=== PATIENT | female | born 2000 | race Caucasian/White ===

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

== ENCOUNTER → 2021-01-01 13:55 | Outpatient (BNVA) | payer OTHER, SELFPAY | PROVIDERS: Visit Provider Nurse Practitioner ==

== ENCOUNTER 2021-02-04 12:00 | Outpatient (REF) | payer OTHER, SELFPAY ==
[2021-02-04 13:13] LABS: Cholesterol 182 mg/dL; HDL Cholesterol 52 mg/dL; LDL Cholesterol Calculated 108 mg/dl; Triglycerides 112 mg/dL
== END 2021-02-04 12:01 | disposition home or self-care (01) ==
LOC: HO.LAB 12:00
PROVIDERS: PCP Internal Medicine; Visit Provider Internal Medicine
DX: Z00.00 Encounter for general adult medical examination without abnormal findings (principal); K58.9 Irritable bowel syndrome, unspecified
CPT/HCPCS: 36415; 80061

== ENCOUNTER → 2021-05-24 13:40 | Outpatient (BNVA) | payer OTHER, SELFPAY | PROVIDERS: PCP Internal Medicine; Referring Provider Internal Medicine; Visit Provider Nurse Practitioner | DX: K58.2 Mixed irritable bowel syndrome (principal); Q61.3 Polycystic kidney, unspecified; K21.9 Gastro-esophageal reflux disease without esophagitis; R10.30 Lower abdominal pain, unspecified | CPT/HCPCS: 99212 ==

== ENCOUNTER 2023-02-08 14:31 | Outpatient (REF) | payer OTHER, SELFPAY ==
[2023-02-08 16:07] LABS: MANUAL DIFF FLAG NO
[2023-02-08 16:12] LABS: Basophils Percent Auto 0.7 % (0-2); Eosinophils Absolute Auto 0.2 X10*3/uL (0.0-0.4); Eosinophils Percent Auto 3.9 % (0-4); Hematocrit 43.4 % (37.0-47.0); Hemoglobin 14.5 g/dl (12.0-16.0); Imm Gran Abs Auto 0.01 X10*3/uL (0.00-0.03); Imm Gran Pct Auto 0.2 % (0.0-0.4); Lymphocytes Absolute Auto 1.8 X10*3/uL (1.2-4.9); Lymphocytes Percent Auto 30.3 % (20-40); Mean Corpuscular HGB Conc 33.4 g/dl (31.0-35.0); Mean Corpuscular Hemoglobin 29.1 pg (27.0-33.0); Monocytes Absolute Auto 0.5 X10*3/uL (0.1-1.2); Monocytes Percent Auto 7.6 % (2-11); Neutrophils Absolute Auto 3.4 x10*3/uL (2.0-8.3); Neutrophils Percent Auto 57.3 % (45-73); Platelet Count 338 X10*3/uL (160-400); Red Blood Count 4.99 X10*6/uL (4.20-5.50); Red Cell Distribution Width 12.3 % (11.0-16.0); White Blood Count 5.9 X10*3/uL (4.8-10.8)
[2023-02-08 16:13] LABS: Appearance Urine Turbid; Color Urine Dark Yellow; Glucose Urine UA Negative (Negative); Leukocyte Esterase Urine Negative (Negative); Nitrite Urine Negative (Negative); PH 5.5 (5.0-9.0); Specific Gravity - Urine >= 1.030 (1.005-1.025); UMIC TRIGGER UA YES; Urine Blood Large (3+) (Negative); Urine Ketones Trace mg/dL (Negative); Urine Protein 30 (1+) mg/dL (Neg-Trace)
[2023-02-08 16:24] LABS: Bacteria Urine 1+ (None Seen); Hyaline Casts Urine 0-2 /LPF (0-2); RBC Urine 0-2 /HPF (0-2); WBC Urine 0-5 /HPF (0-5)
[2023-02-08 16:49] LABS: Alanine Aminotransferase 11 U/L (0-31); Albumin Level 4.2 g/dL (3.5-5.0); Alkaline Phosphatase 103 U/L (39-117); Anion Gap 14 (12-20); Aspartate Amino Transferase 15 U/L (5-31); Bilirubin Total 0.3 mg/dL (0.0-1.0); Blood Urea Nitrogen 7 mg/dL (9-16); Calcium 9.3 mg/dL (8.4-10.2); Carbon Dioxide 25 mmol/L (22-29); Chloride 106 mmol/L (96-108); Cholesterol 158 mg/dL; Estimated Glomerular Filt Rate > 60; Glucose Fasting 94 mg/dL (60-99); HDL Cholesterol 44 mg/dL; LDL Cholesterol Calculated 100 mg/dl; Potassium 4.3 mmol/L (3.3-5.1); Sodium 141 mmol/L (135-145); Total Protein 7.3 g/dL (6.5-8.0); Triglycerides 71 mg/dL
[2023-02-09 21:23] LABS: Rubella IgG Antibody 2.72 Index
[2023-02-10 08:22] LABS: HBS Num1 0.31 mIU/mL (0-7.99); ~Hepatitis B Surface Antibody NONREACTIVE (Nonreactive)
[2023-02-10 17:09] LABS: TS Negative Control Passed; TS Panel A 0; TS Panel B 0; TS Positive Control Passed; TSpotTB Negative (Negative)
== END 2023-02-08 14:32 | disposition home or self-care (01) ==
LOC: HO.HMGCLDS 14:31
PROVIDERS: PCP Internal Medicine; Visit Provider Internal Medicine
DX: Z00.00 Encounter for general adult medical examination without abnormal findings (principal); Z11.1 Encounter for screening for respiratory tuberculosis
CPT/HCPCS: 36415; 80053; 80061; 81001; 85025; 86481; 86706; 86735; 86762; 86765; 86787

== ENCOUNTER 2023-04-23 11:51 | Emergency (ER) | payer OTHER, SELFPAY ==
--- NOTE | ~2023-04-23 | XR_ITS ---
EXAMINATION: XR CHEST CLINICAL INFORMATION: Cough for one month COMPARISON: None available. TECHNIQUE: Frontal view of the chest was obtained. FINDINGS: No significant abnormality is noted involving the heart, lungs, mediastinum, bony thorax or soft tissues. XR/XR chest 1V IMPRESSION: Unremarkable chest examination.
[2023-04-23 12:01] VITALS: BP 126/81; PULSE 89; RESP 18; TEMP 36.8; O2SAT 99; BMI 23.2
[2023-04-23 12:55] LABS: Influenza A PCR NEGATIVE (Negative); Influenza B PCR NEGATIVE (Negative); Resp Syncy Virus RNA Qual PCR NEGATIVE (Negative); SARS COV2 PCR INHOUSE NEGATIVE (Negative)
[2023-04-23 14:20] LABS: Appearance Urine Clear; Color Urine Dark Yellow; Glucose Urine UA Negative (Negative); Leukocyte Esterase Urine Moderate (2+) (Negative); Nitrite Urine Positive (Negative); PH 7.5 (5.0-9.0); Specific Gravity - Urine 1.015 (1.005-1.025); UMIC TRIGGER UACC YES; Urine Blood Negative (Negative); Urine Ketones Negative (Negative); Urine Protein Negative (Neg-Trace)
[2023-04-23 14:21] LABS: UPreg QC Valid YES; Urine Pregnancy NEGATIVE (NEGATIVE)
[2023-04-23 14:25] LABS: Bacteria Urine 4+ (None Seen); Hyaline Casts Urine 0-2 /LPF (0-2); RBC Urine 0-2 /HPF (0-2); UACC Culture Trigger YES; WBC Urine 21-50 /HPF (0-5)
--- NOTE | 2023-04-23 15:24 | ED.GENADULT ---
HPI - General Adult General Chief complaint: Upper Respiratory Symptoms Stated complaint: pneumonia? Time Seen by Provider: 04/23/23 12:57 Source: patient Mode of arrival: ambulatory Limitations: no limitations History of Present Illness HPI narrative: 23 yold female presents to the ED for chronic cough for the past month with yellow phlegm. Patient states she was treated as bronchitis earlier in the month but still had the cough and would like a chest x-ray. Patient denies any shortness of breath, leg swelling, calf pain, coughing up blood, pleurisy, recent long travel, recent surgery, or estrogen hormonal control pills. Patient's secondary complaint is dysuria. Patient states no abdominal pain, nausea, vomiting, flank pain, fever, chills, or hematuria. Related Data Home Medications Medication Instructions Recorded Confirmed hydroxyzine HCl 10 mg tablet 10 mg PO BID PRN anxiety 05/24/21 02/08/23 oxcarbazepine 150 mg tablet 300 mg PO 05/24/21 02/08/23 Previous Rx's Medication Instructions Recorded barium sulfate 2 % (w/v) oral 450 ml PO DIRECTED 1 day #900 mL 10/29/20 suspension (Readi-Cat 2) omeprazole 20 mg capsule,delayed 20 mg PO DAILY 30 days #30 caps 05/24/21 release benzonatate 200 mg capsule 200 mg PO TID PRN cough 5 days #15 04/23/23 caps cephalexin 500 mg capsule 500 mg PO QID 7 days #28 caps 04/23/23 Allergies Allergy/AdvReac Type Severity Reaction Status Date / Time No Known Allergies Allergy Verified 02/08/23 13:28 [No Known Allergies*] Review of Systems Review of Systems: Cough with yellow phelbhm, and dysuria Yes all other systems are reviewed and are negative [facility] Past Medical History Medical History Annual physical exam Bipolar 1 disorder IBS (irritable bowel syndrome) Menorrhagia Family History Family History Father No problems noted. Mother Hx of colonoscopy Hx of esophagogastroduodenoscopy Sister No problems noted. Brother No problems noted. Brother No problems noted. Social History Social History Household Members: Family Household Members Other:: Dad Housing: Condominium Alcohol intake: never Patient Tobacco Use Status: Never used Tobacco e-Cigarette/Vaping Use: Never Used Advance Directives: No Advance Directives Information Provided: Yes Current occupational status: unemployed Cognitive needs: No Hearing needs: No Vision needs: Yes Physical Exam ED Vital Signs: Vital Signs - 24 hr 04/23/23 12:01 04/23/23 15:50 Temperature 98.2 F 98.5 F Pulse Rate 89 75 Respiratory Rate 18 15 Blood Pressure 126/81 117/77 Pulse Oximetry 99 99 Oxygen Delivery Method Room Air Room Air BMI result Body Mass Index 23.2 Const General: cooperative, healthy appearing, comfortable, no acute distress, well developed, alert, awake and Physically active Orientation/consciousness: oriented to person, oriented to place, oriented to time and patient oriented x3 HENMT Head: Yes normal to inspection, Yes No palpable skull fracture present, Yes normocephalic, Yes atraumatic and No abrasion Ears: hearing grossly normal bilaterally, external ears normal, TM's normal bilaterally, TM normal on the right, TM normal on the left, EAC's normal, mastoids normal and no periauricular adenopathy Eyes General: appearance normal, both eyes and all related structures Neck Neck: Yes normal visual inspection, Yes full ROM, Yes no lymphadenopathy, Yes no meningeal signs, Yes trachea midline, Yes supple, No anterior neck swelling and No tender Chest Chest palpation & inspection: normal inspection of the chest and normal palpation of entire chest wall Resp Effort & Inspection: normal respiratory effort and able to speak in complete sentences Auscultation: clear to auscultation bilaterally Cardio Jugular venous distension: no JVD Heart sounds: S1 normal heart sound present and S2 normal heart sound present GI Inspection: Yes normal to inspection and No abdominal wall ecchymosis Palpation (GI): Soft to palpation, not firm, nontender, no guarding and not rigid General: No CVA tenderness and Yes no CVA tenderness Back/Spine/Pelvis Back: no CVA tenderness, No CVA tenderness and No back tenderness Skin General skin exam: no rashes or lesions noted and elasticity normal Neuro General: oriented to person, oriented to place, oriented to time, patient oriented x3, gait normal, tone normal, moves all extremities, Normal light touch and pain sensation, no meningeal signs, no focal motor deficits, CN's II-XI intact bilaterally and normal sensation to monofilament Extrem General: Yes normal to inspection and Yes full ROM Psych Appearance: grossly normal, well kempt and not disheveled Medical Decision Making Medical Decision Making [facility] Narrative: 23-year-old female presents to ED for chronic cough for 1 month with yellow phlegm without any chest pain or shortness of breath. Secondary complaint was dysuria without any abdominal pain, hematuria, nausea, vomiting, flank pain, fever or chills. SARs COVID RSV came back negative. Chest x-ray normal. Bilateral lower extremity negative for swelling, pitting edema, calf tenderness. Suspected myocardial infarction, CHF, pulmonary embolus. UA shows UTI. Differential Diagnosis Differential Diagnoses: The differential diagnosis associated with the presentation includes (Pyelonephritis, kidney stone, heart failure, myocardial infarction, pneumonia, pulmonary embolus) Lab Data [facility] Lab Attestation statement: I reviewed the patient's lab results. Labs: Lab Results 04/23/23 04/23/23 04/23/23 Range/Units 12:06 14:12 14:12 Urine Color Dark Yellow Urine Appearance Clear Urine pH 7.5 (5.0-9.0) Ur Specific [place] 1.015 (1.005-1.025) Urine Protein Negative (Neg-Trace) mg/dL Urine Glucose (UA) Negative (Negative) mg/dL Urine Ketones Negative (Negative) mg/dL Urine Blood Negative (Negative) Urine Nitrite Positive H (Negative) Ur Leukocyte Esterase Moderate (2+) H (Negative) Urine RBC 0-2 (0-2) /HPF Urine WBC 21-50 H (0-5) /HPF Ur Squamous Epith Cells 6-10 (0-2) /HPF Urine Bacteria 4+ (None Seen) Hyaline Casts 0-2 (0-2) /LPF Urine Test NEGATIVE (NEGATIVE) Influenza Type A (PCR) NEGATIVE (Negative) Influenza Type B (PCR) NEGATIVE (Negative) RSV RNA Qual (PCR) NEGATIVE (Negative) SARS-CoV-2 RNA (RT-PCR) NEGATIVE (Negative) Independent Interpretation I performed an independent interpretation of an: Plain X-Ray Prescription Management I considered prescription management with: Antibiotic Discharge Plan Discharge Clinical Impression: Chronic cough, UTI (urinary tract infection) Patient Disposition: Home, Self-Care Instructions: Urinary Tract Infection in Women (ED), Chronic Cough (ED) Additional Instructions: Return to the ED immediately for any abdominal pain, nausea, vomiting, blood in urine, flank pain, fever, chills, chest pain, shortness of breath, leg swelling, calf pain, coughing up blood, chest in inspiration, or any other concerning symptoms. Please follow-up with the primary care provider. Prescriptions: New cephalexin 500 mg capsule 500 mg PO QID 7 Days Qty: 28 0RF benzonatate 200 mg capsule 200 mg PO TID PRN (Reason: cough) 5 Days Qty: 15 0RF No Action Readi-Cat 2 2 % (w/v) suspension 450 ml PO DIRECTED 1 Days Qty: 900 0RF Rx Instructions: Take as directed orally prior to CT Scan oxcarbazepine 150 mg tablet 300 mg PO hydroxyzine HCl 10 mg tablet 10 mg PO BID PRN (Reason: anxiety) omeprazole 20 mg capsule,delayed release(DR/EC) 20 mg PO DAILY 30 Days Qty: 30 6RF Interventions: ED Discharge Assessment Last Done: 04/23/23 15:50 Discharge Date/Time: 04/23/23 15:51 Print Language: Estonian
[2023-04-23 15:50] VITALS: BP 117/77; PULSE 75; RESP 15; TEMP 36.9; O2SAT 99
== END 2023-04-23 15:51 | disposition home or self-care (01) ==
PROVIDERS: Physician Assistant; Emergency Provider Internal Medicine; PCP Internal Medicine
DX: N39.0 Urinary tract infection, site not specified (principal); R05.9 Cough, unspecified; Z20.822 Contact with and (suspected) exposure to COVID-19; Z20.828 Contact with and (suspected) exposure to other viral communicable diseases; Z79.899 Other long term (current) drug therapy
CPT/HCPCS: 0241U; 71045; 81001; 81025; 87086; 87088; 87186; 99283

== ENCOUNTER 2025-05-01 11:34 | Outpatient (AMB) | payer OTHER, SELFPAY ==
--- NOTE | 2025-05-01 11:53 | A.OFFPC_ITS ---
Vital Signs 05/01/25 11:54 Height 5 ft 4 in Weight 161 lb BMI 27.6 BP 110/70 Blood Pressure Location Lt brachial Position Sitting Respiration 20 Pulse 98 Pulse Source Pulse Oximeter Temp 98.7 F Temp Source Oral Pulse Oximetry (%) 98 Oxygen Delivery Method Room Air Intake Visit Reasons: GI issues Intake Note: Pt is here today for a sick visit. Pt c/o GI issues for a month now. Pt states that she has diarrhea and constipation. Allergies No Known Allergies [No Known Allergies*] Allergy (Verified 05/01/25 11:58) Medication List - Last Reconciled 05/01/25 by Radha Seaman MD buspirone 5 mg PO BID Tobacco use date assessed: 05/01/25 Dental Screening Dental Screen Date: 05/01/25 Did you have a dental visit in the last 12 months?: Yes Did you have a dental problem in the last 6 months where you did not have access to dental care?: No Was dental information given to patient?: Patient has dentist HPI GI issues HPI Details Patient presents complaining of recurrent abdominal discomfort bloating intermittent diarrhea constipation worsening since patient had twin boys a year ago and worsening anxiety for the last few months. Patient is established with a counselor and just started taking buspirone 5 mg twice a day. Patient was evaluated by GI in the past she was negative for celiac disease. Patient is established with clinical tech for polycystic kidney disease having annual visits. [facility] Medical History (Updated 05/01/25 @ 12:50 by Radha Seaman MD) Chronic anxiety Polycystic kidney disease Menorrhagia IBS (irritable bowel syndrome) Annual physical exam Bipolar 1 disorder Surgical History Bruno teeth extracted Family History (Updated 05/01/25 @ 12:02 by GINNA Pratt) Father No problems noted. Mother Hx of colonoscopy Hx of esophagogastroduodenoscopy Sister No problems noted. Brother No problems noted. Brother No problems noted. Maternal Grandmother Lung cancer Social History Household Members: Family Household Members Other:: Dad Housing: Condominium Alcohol intake: never Patient Tobacco Use Status: Never used Tobacco e-Cigarette/Vaping Use: Never Used service: No Current occupational status: unemployed Cognitive needs: No Hearing needs: No Vision needs: Yes Questionnaire PHQ-9 Over the last 2 weeks, how often have you been bothered by any of the following problems? 1. Little interest or pleasure in doing things: not at all 2. Feeling down, depressed, or hopeless: more than half the days 3. Trouble falling or staying asleep, or sleeping too much: not at all 4. Feeling tired or having little energy: nearly every day 5. Poor appetite or overeating: several days 6. Feeling bad about yourself - or that you are a failure or have let yourself or your family down: not at all 7. Trouble concentrating on things, such as reading the newspaper or watching television: not at all 8. Moving or speaking so slowly that other people could have noticed. Or the opposite - being so fidgety or restless that you have been moving around a lot more than usual: not at all 9. Thoughts that you would be better off or of hurting yourself in some way: not at all Total score: 6 Depression Screening Interpretation: Negative Depression Screening Done: Yes 53748 - PHQ-9 Billing: Yes Source: Developed by Drs. Gilson Yeboah, Selma Argueta, Amos Issa and colleagues, with an educational laurie from [employer]. Thrive Questionnaire Date Thrive assessed: 05/01/25 I am a: Patient What is your living situation today?: I have a steady place to live Within the past 12 months, did the food you bought not last and you didn't have the money to get more?: Never true Within the past 12 months, did you worry whether your food would run out before you got money to buy more?: Sometimes True Do you have trouble paying for medicines?: No Do you have trouble getting transportation to medical appointments?: Yes Do you have trouble paying your heating and electricity bill?: No Do you have trouble taking care of your child, family member or friend?: No Do you have trouble with day-to-day activities such as bathing, preparing meals, shopping, managing finances, etc.?: No Are you currently unemployed and looking for a job?: No Are you interested in more education?: I choose not to answer this question Please select the resources that you would like help with: None Currently or been in a relationship where the following occur: I choose not to answer THRIVE Score: 2 AUDIT C Alcohol Use Questionnaire (AUDIT-C) 1. How often do you have a drink containing alcohol?: Never 3. How often do you have six or more drinks on one occasion?: Never Total Score: 0 SILVINO-7 AMB Questionnaire SILVINO-7 Date SILVINO - 7 assessed: 05/01/25 Feeling nervous, anxious, or on edge: 3 = Nearly every day Not being able to stop or control worryin = More than half the days Worrying too much about different things: 2 = More than half the days Trouble relaxin = Several days Being so restless that it is hard to sit still: 1 = Several days Becoming easily annoyed or irritable: 1 = Several days Feeling afraid as if something awful might happen: 2 = More than half the days Total SILVINO-7 score (0-4 normal; 5-9 mild; 10-14 moderate; 15-21 severe): 12 Source: Developed by Drs. Gilson Yeboah, Selma Argueta, Amos Issa and colleagues, with an educational laurie from [employer]. SILVINO-7 Assessment Billing SILVINO-7 Assessment Tool: SILVINO-7 Assessment 52621 Review of Systems Const All systems reviewed & are unremarkable except as noted in HPI and below Eyes Reports no additional complaints Card Reports no additional complaints Resp Reports no additional complaints GI Reports no additional complaints Physical exam (Primary Care) Vital Signs: Last Vital Signs Temp 98.7 F 05/01/25 11:54 Pulse 98 05/01/25 11:54 Resp 20 05/01/25 11:54 BP 110/70 05/01/25 11:54 Pulse Ox 98 05/01/25 11:54 Oxygen Delivery Method Room Air 05/01/25 11:54 BMI result Body Mass Index 27.6 Tobacco/Smoking Status: Tobacco use Status Tobacco use date assessed 05/01/25 05/01/25 11:56 Patient Tobacco Use Status Never used Tobacco 05/01/25 11:56 e-Cigarette/Vaping Use Never Used 05/01/25 11:56 PHQ-9: PHQ-9 Score PHQ-9: Total score 6 06/05/25 12:03 Depression Screening Interpretation: Negative Thrive Assessment: Date of Thrive Assessment Date Thrive assessed 05/01/25 05/01/25 12:03 Currently or been in a relationship where the following occur: I choose not to answer Const General: no acute distress HENMT Head: Yes normal to inspection General nose exam: Normal external nose present Neck Neck: Yes supple Resp Effort & Inspection: normal respiratory effort Auscultation: clear to auscultation bilaterally Cardio Rhythm: regular rhythm Heart sounds: S1 normal heart sound present and S2 normal heart sound present GI Inspection: Yes normal to inspection Palpation (GI): Soft to palpation Percussion: Yes normal to percussion Auscultation: normal bowel sounds Coding Level of Care Code Est Pt Level 3 (11445) Diagnoses Polycystic kidney disease Q61.3 IBS (irritable bowel syndrome) K58.9 Chronic anxiety F41.9 Additional Codes SILVINO-7 Assessment Billing - SILVINO-7 Assessment Tool: SILVINO-7 Assessment 12838 ([id number]) PHQ-9 - 80384 - PHQ-9 Billing: Yes ([id number]) Assessment & Plan Assessment & Plan (1) Polycystic kidney disease: Comment: Evaluated by Nephrology Code(s): Q61.3 - Polycystic kidney, unspecified Category: Medical Plan: Follow-up with nephrology (2) IBS (irritable bowel syndrome): Comment: f/u [facility] GI February, never had a colonoscopy, negative stool studies and celiac disease workup Code(s): K58.9 - Irritable bowel syndrome, unspecified Category: Medical Plan: Return for fasting blood work dicyclomine will be tried (3) Chronic anxiety: Comment: Established with a counselor and prescriber Code(s): F41.9 - Anxiety disorder, unspecified Category: Medical Plan: Mindfulness meditation stress management discussed with the patient. Follow-up with a counselor and a prescriber Orders: Orders Complete Blood Count Auto Diff Today Q61.3 - Polycystic kidney, unspecified, Z00.00 - Encounter for general adult medical examination without abnormal findings IRON PROFILE Today Q61.3 - Polycystic kidney, unspecified, Z00.00 - Encounter for general adult medical examination without abnormal findings TSH reflex Free T4 Today Q61.3 - Polycystic kidney, unspecified, Z00.00 - Encounter for general adult medical examination without abnormal findings Vitamin D 25-OH Total Today Q61.3 - Polycystic kidney, unspecified, Z00.00 - Encounter for general adult medical examination without abnormal findings Lipid Panel Today Q61.3 - Polycystic kidney, unspecified, Z00.00 - Encounter for general adult medical examination without abnormal findings Comprehensive [place]. Panel Fast Today Q61.3 - Polycystic kidney, unspecified, Z00.00 - Encounter for general adult medical examination without abnormal findings UA w Microscopic Today Q61.3 - Polycystic kidney, unspecified, Z00.00 - Encounter for general adult medical examination without abnormal findings Medications: New dicyclomine 10 mg PO TID 90 caps 0RF
[2025-05-01 11:54] VITALS: BP 110/70; PULSE 98; RESP 20; TEMP 37.1; O2SAT 98; BMI 27.6
--- OUTSIDE RECORDS SUMMARY | 2025-05-01 13:48 | XMS_ITS | Encounter Summary ---
Author Organization [facility] Address [address] [place] [phone] Phone Care Team Providers Care Student Teaching Coordinator Name Role Phone Radha Seaman MD Primary Care Provider [phone] Encounter Details Date Type Department Care Team (Late st Contact Info) Description 06/09/2023 Orders Only [facility] [address] [place] [address] [place] [address] [place] [address] Urinary tract infection, not otherwise specified Social History Tobacco Use Types Packs/Day Years Used Date Smoking Tobacco: Never Smokeless Tobacco: Never Alcohol Use Standard Drinks/Week Comments Never 0 (1 standard drink = 0.6 oz pur e alcohol) AUDIT-C Answer Date Recorded Q1: How often do you have a drink containing alc ohol? Never 12/11/2020 Average Number of Drinks Not on file 021 Frequency of Binge Drinking Not on file 11/27 Comments Unknown Sex and Gender Information Value Date Recorded Sex Assigned at Not on file Legal Sex Female 3:47 PM EST Gender Identity Not on file Sexual Orientation Not on file documented as of this encounter Plan of Treatment Upcoming Encounters Date Type Department Care Team (Late st Contact Info) Description 12/17/2025 2:15 PM EST Office Visit [facility] [address] [place] [phone] Sharif Junior MD [address] [place] [address] [place] [phone] documented as of this encounter Visit Diagnoses Diagnosis Urinary tract infection, not otherwise specified documented in this encounter Care Teams Student Teaching Coordinator Relationship Specialty Start Date End Date Radha Seaman MD [address] [place] [address] PCP - General Internal Medicine 11/10/20 documented as of this encounter
== END 2025-05-01 12:57 | disposition home or self-care (01) ==
LOC: HO.HMCC 11:35
PROVIDERS: PCP Internal Medicine; Visit Provider Internal Medicine
DX: Q61.3 Polycystic kidney, unspecified (principal); K58.9 Irritable bowel syndrome, unspecified; F41.9 Anxiety disorder, unspecified

== ENCOUNTER → 2025-05-01 11:34 | Outpatient (BNVA) | payer OTHER, SELFPAY | PROVIDERS: PCP Internal Medicine; Visit Provider Internal Medicine | DX: K58.0 Irritable bowel syndrome with diarrhea (principal); K58.1 Irritable bowel syndrome with constipation; Q61.3 Polycystic kidney, unspecified; F41.9 Anxiety disorder, unspecified | CPT/HCPCS: 96127; 99212 ==

== ENCOUNTER 2025-06-14 09:18 | Outpatient (REF) | payer OTHER, SELFPAY ==
--- OUTSIDE RECORDS SUMMARY | 2025-06-14 09:21 | XMS_ITS | Encounter Summary ---
Author Organization [facility] Address [address] [place] [phone] Phone Care Team Providers Care Mine Administrator Supervisor Name Role Phone Radha Seaman MD Primary Care Provider [phone] Encounter Details Date Type Department Care Team (Late st Contact Info) Description 06/09/2023 Orders Only [facility] [address] [place] [address] [place] [address] [place] [address] Urinary tract infection, not otherwise [...] Visit [facility] [address] [place] [phone] Sharif Junior MD [address] [place] [address] [place] [address] documented as of this encounter Visit Diagnoses Diagnosis Urinary tract infection, not otherwise specified documented in this encounter Care Teams Mine Administrator Supervisor Relationship Specialty Start Date End Date Radha Seaman MD [address] [place] [address] PCP - General Internal Medicine 11/10/20 documented as of this encounter
--- OUTSIDE RECORDS SUMMARY | 2025-06-14 09:21 | XMS_ITS | Data Portability ---
Author Organization [facility], [address] Address [address] [place] [address] Care Team Providers Care Director Volunteer Services Name Role Phone RAMON VERA Primary Care Provider Assessment No assessment recorded. Plan of Treatment Reminders Order Date Submit Date Provider Last Modified By Organization Details Last Modified Time Details Appointments None recorded. Lab rapid SARS CoV 2 Ag, QL IA, respiratory specimen 2022 023 [facility], [address] [place] [address], [phone], 3 20:25:08 rapid flu (A+B) 2022 023 [facility], [address] [place] [address], [phone], 3 20:25:08 rapid strep group A, throat 2022 023 [facility], [address] [place] [address], [phone], 3 20:25:08 Referral None recorded. Procedures None recorded. Surgeries None recorded. Imaging None recorded. Medication Orders albuterol sulfate HFA 90 mcg/actuati on aerosol inhaler 2022 023 [id number], [address] [place], [address], 3 18:54:04 prednisone 20 mg tablet 2022 023 [id number] [address] [place], [address], 3 18:54:03 benzonatate 200 mg capsule 2022 023 [id number], [address] [place], [address], 3 18:54:01 Allergy Relief (fluticason e) 50 mcg/actuati on nasal spray,suspe nsion 2022 023 [id number], [address] [place], [address], 3 18:54:02 amoxicillin 875 mg-potassiu m clavulanate 125 mg tablet 2022 023 [facility] [address] [place], [address], 3 20:25:12 fexofenadin e-pseudoeph edrine ER 180 mg-240 mg tablet,ext. release 24 hr 2022 023 [id number] [address] [place], [address], 3 20:25:12 prednisone 20 mg tablet 2022 023 [id number] [address] [place], [address], 3 20:25:12 Patient TargetsNo targets recorded. Patient Instructions Encounter Date Encounter Id Patient Instructions Last Modified By Organization Details Last Modified Time 02/24/2023 [id number] An ear infection may start with a cold and affect the middle ear (otitis media). It can hurt a lot. Most ear infections clear up on their own in a couple of days and do not need antibiotics. Also, antibiotics do not work against viruses, which may be the cause of your infection. Regular doses of pain relievers are the best way to reduce your fever and help you feel better. How can you care for yourself at home? Take pain medicines exactly as directed. If the doctor gave you a prescription medicine for pain, take it as prescribed. If you are not taking a prescription pain medicine, take an nabt-yat-dqinwme medicine, such as acetaminophen (Tylenol), ibuprofen (Advil, Motrin), or naproxen (Aleve). Read and follow all instructions on the label. Do not take two or more pain medicines at the same time unless the doctor told you to. Many pain medicines have acetaminophen, which is Tylenol. Too much acetaminophen (Tylenol) can be harmful. Plan to take a full dose of pain reliever before bedtime. Getting enough sleep will help you get better. Try a warm, moist face cloth on the ear. It may help relieve pain. If your doctor prescribed antibiotics, take them as directed. Do not stop taking them just because you feel better. You need to take the full course of antibiotics. [email or web address] Not available 02/24/2023 20:24:12 If you test positive for COVID-19, stay home for at least 5 days and isolate from others in your home. You are likely most infectious during these first 5 days. Wear a high-quality mask if you must be around others at home and in public. Do not go places where you are unable to wear a mask. For travel guidance, see [facility] s Travel webpage. Do not travel. Stay home and separate from others as much as possible. Use a separate bathroom, if possible. Take steps to improve ventilation at home, if possible. Don t share personal household items, like cups, towels, and utensils. Monitor your symptoms. If you have an emergency warning sign (like trouble breathing), seek emergency medical care immediately. If you had symptoms and: Your symptoms are improving You may end isolation after day 5 if: You are fever-free for 24 hours (without the use of fever-reducing medication). Your symptoms are not improving Continue to isolate until: You are fever-free for 24 hours (without the use of fever-reducing medication). Your symptoms are improving. Regardless of when you end isolation Until at least day 11: Avoid being around people who are more likely to get very sick from COVID-19. Remember to wear a high-quality mask when indoors around others at home and in public. Do not go places where you are unable to wear a mask until you are able to discontinue masking (see below). For travel guidance, see [facility] Travel webpage. [email or web address] Not available 02/24/2023 20:14:56 03/25/2023 [id number] cough: care instructions [email or web address] Not available 03/25/2023 18:53:58 Patient instruct ed on worsening signs and symptoms that would require further evaluation by ED or PCP such as fever of 101.0 or greater, congestion accompanied with coughing, vomiting, diarrhea, abdominal pain, decreased oral intake, lethargy, or other new symptom(s) experienced not discussed during this visit. Use humidifier and ensure good hydration. If you experience new concerning symptoms, shortness of breath, respiratory distress, or chest pain go to the ER. Use the medications prescribed. May use Decongestants if tolerated and no history of elevated blood pressure or Diabetes. Use saline nasal saline and Flonase daily for1 week. You may use tylenol for pain/fever. Do not take prednisone with Ibuprofen. Get some extra rest. When should you call for help? Call anytime you think you may need emergency care. For example, call if: You have severe trouble breathing. Call your doctor now or seek immediate medical care if: You have new or worse trouble breathing. You cough up dark brown or bloody mucus (sputum). You have a new or higher fever. You have a new rash. Watch closely for changes in your health, and be sure to contact your doctor if: You cough more deeply or more often, especially if you notice more mucus or a change in the color of your mucus. You are not getting better as expected. [email or web address] Not available 03/25/2023 18:53:55 Reason for Referral None Reported. Results Created Date Observation Date Name Description Value Unit Range Abnormal Flag Note LastModifiedBy Organization Detail LastModifiedTime 02/25/20 23 02/24/2023 rapid SARS CoV 2 Ag, QL IA, respi rator y speci men Unknown Analyte Normal =Negat flower Not Available [address] [place] [address], [place], [address], 02/24/2023 19:57:57 02/25/20 23 02/24/2023 rapid SARS CoV 2 Ag, QL IA, respi rator y speci men Unknown Analyte negati ve Not Available [address] [place] [address], [place], [address], 02/24/2023 19:57:57 02/25/20 23 02/24/2023 rapid flu (A+B) Unknown Analyte Normal = Negati ve Not Available [address] [place] [address], [place], [place], [address], 02/24/2023 19:58:05 02/25/20 23 02/24/2023 rapid flu (A+B) Unknown Analyte Normal = Negati ve Not Available [address] [place] [address], [place], [address], 02/24/2023 19:58:05 02/25/20 23 02/24/2023 rapid flu (A+B) Unknown Analyte negati ve Not Available [address] [place] [address], [place], [address], 02/24/2023 19:58:05 02/25/20 23 02/24/2023 rapid flu (A+B) Unknown Analyte negati ve Not Available [address] [place] [address], [place], [address], 02/24/2023 19:58:05 02/25/20 23 02/24/2023 rapid strep group A, throa t Unknown Analyte Normal = Negati ve Not Available [address] [place] [address], [place], [address], 02/24/2023 19:58:13 02/25/20 23 02/24/2023 rapid strep group A, throa t Unknown Analyte negati ve Not Available [address] [place] [address] [place], [address], 02/24/2023 19:58:13 Result Notes None recorded. Problems No Known Problems Medical Equipment None Reported. Allergies No known drug allergies Medications Name Sig Start Date Stop Date Status Note LastModified by Organization Details LastModified Time oxcarbazepi ne 150 mg tablet TAKE 2 TABLETS BY MOUTH IN THE MORNING AND 2 TABLETS AT BEDTIME active Not Available Not Available No t Available benzonatate 200 mg capsule Take 1 capsule 3 times a day by oral route as needed for 7 days. 2022 active Not Available Not Available Not Avai lable prednisone 20 mg tablet Take 2 tablets every day by oral route in the morning for 4 days. 2022 active Not Available Not Available Not Avai lable phenazopyri dine 100 mg tablet TAKE 1 TABLET BY MOUTH THREE TIMES A DAY FOR 5 DAYS 02/24 completed Not Available Not Available Not Available cephalexin 500 mg capsule TAKE 1 CAPSULE BY MOUTH EVERY 6 HOURS FOR 7 DAYS 02/24 completed Not Available Not Available Not Available albuterol sulfate HFA 90 mcg/actuati on aerosol inhaler Inhale 2 puffs every 4-6 hours by inhalatio n route as needed for 10 days. 2022 active Not Available Not Available Not Avai lable hydroxyzine HCl 10 mg tablet TAKE 1-2 TABLET BY MOUTH TWICE A DAY NEEDED FOR ANXIETY active Not Available Not Available No t Available fluticasone propionate 50 mcg/actuati on nasal spray,suspe nsion SPRAY 1 SPRAY BY INTRANASA L ROUTE EVERY DAY DIRECTED FOR 30 DAYS active Not Available Not Available No t Available amoxicillin 875 mg-potassiu m clavulanate 125 mg tablet TAKE 1 TABLET BY MOUTH EVERY 12 HOURS WITH MEALS FOR 10 DAYS active Not Available Not Available No t Available nitrofurant oin monohydrate /macrocryst als 100 mg capsule TAKE 1 CAPSULE BY MOUTH TWICE A DAY FOR 7 DAYS 02/24 completed Not Available Not Available Not Available fexofenadin e-pseudoeph edrine ER 180 mg-240 mg tablet,ext. release 24 hr Take 1 tablet every day by oral route in the evening for 10 days. 2022 active Not Available Not Available Not Avai lable ramelteon 8 mg tablet TAKE 1 TABLET BY MOUTH EVERYDAY AT BEDTIME 02/24 completed Not Available Not Available Not Available Vitals Date Recorded Body height Body mass index (BMI) Body weight Oxygen saturation Oxygen saturation in Arterial blood by Pulse oximetry Heart rate Respiratory rate Body temperature Systolic And Diastolic Provider Name and Address Organization Details Last Updated DateTime 3 162.56 cm 24 kg/m2 84200.9 3 g 98 % 98 % 122 /min 18 /min 99.6 [degF] 111/75 mm[Hg] Aldachristos Olivaresgabriella PA - [facility] 3 20:01:43 Date Recorded Body height Body mass index (BMI) Body weight Oxygen saturation Oxygen saturation in Arterial blood by Pulse oximetry Heart rate Respiratory rate Body temperature Systolic And Diastolic Provider Name and Address Organization Details Last Updated DateTime 3 162.56 cm 24 kg/m2 05994.9 3 g 99 % 99 % 95 /min 20 /min 99.1 [degF] 122/83 mm[Hg] Sari Gandhi PA - [facility] 3 18:23:34 Social History Question Answer Notes LastModified by [employer] Details LastModified Time Tobacco Smoking Status Never Smoker Alda hatfield PA - [facility] 02/24/2023 19:59:30 Have You Recently Traveled Abroad? No Information not available 02/24/2023 Sex: Unknown Functional Status Question Answer Note LastModified by [employer] Details LastModified Time How many times per week do you consume alcohol? 1-2 times per week Information not available 02/24/2023 Do you use any illicit or recreational drugs? No Information not available 02/24/2023 Do you or have you ever used any other forms of tobacco or nicotine? No Information not available 02/24/2023 What is your level of alcohol consumption? Occasional Information not available 02/24/2023 Mental Status None recorded. Family History Relationship Description Onset Age of this Age Resolved Age Notes LastModified by Organization Details LastModified Time Father No current problems or disability [email or web address] Not available 02/24 19:59:14 Mother No current problems or disability [email or web address] Not available 02/24 19:59:14 Medical History No medical history recorded. Gynecological HistoryNo gynecological history recorded. Obstetrics History GPAL:G 0 P 0 0 0 0 Immunizations Vaccine Type Date Status Note Provider Nam e and Address Organization Details Recorded Time meningococcal B, recombinant 0 completed Alda Monfette null, PA - [facility] 02/24/2023 19:58:36 meningococcal B, recombinant 8 completed Alda Monfette null, PA - [facility] 02/24/2023 19:58:36 HPV9 6 completed Alda Monfette null, PA - [facility] 02/24/2023 19:58:36 HPV9 5 completed Alda Monfette null, PA - [facility] 02/24/2023 19:58:36 HPV9 8 completed Alda Monfette null, PA - [facility] 02/24/2023 19:58:36 COVID-19, mRNA, LNP-S, PF, 100 mcg/0.5mL dose or 50 mcg/0.25mL dose 2 completed Alda Monfette null, PA - [facility] 02/24/2023 19:58:36 COVID-19, mRNA, LNP-S, PF, 100 mcg/0.5mL dose or 50 mcg/0.25mL dose 1 completed Alda Monfette null, PA - [facility] 02/24/2023 19:58:36 COVID-19, mRNA, LNP-S, PF, 100 mcg/0.5mL dose or 50 mcg/0.25mL dose 1 completed Alda Monfette null, PA - [facility] 02/24/2023 19:58:36 Tdap 3 completed Alda Monfette null, PA - [facility] 02/24/2023 19:58:36 Influenza, split virus, trivalent, preservative 5 completed Alda Monfette null, PA - [facility] 02/24/2023 19:58:36 Hep B, adult 3 completed Alda Monfette null, PA - [facility] 02/24/2023 19:58:36 meningococcal MCV4P 8 completed Alda Monfette null, PA - [facility] 02/24/2023 19:58:36 Influenza, split virus, quadrivalent, PF 0 completed Alda Monfette null, PA - [facility] 02/24/2023 19:58:36 Influenza, split virus, quadrivalent, PF 8 completed Alda Monfette null, PA - [facility] 02/24/2023 19:58:36 Past Encounters Encounter ID Performer Location Encounter Start Date Encounter Closed Date Diagnosis/Indication Diagnosis SNOMED-CT Code Diagnosis ICD10 Code Diagnosis Note [id number] [facility] [address] [address] [place] [address] 09/04/2022 11:45:18 09/04/2022 14:25:06 [id number] [address] [address] [place] [address] 06/26/2021 13:16:57 06/26/2021 14:50:52 [id number] Pedro Little NP [address] [place] [address] 02/24/2023 18:59:15 02/24/2023 20:25:42 Exposure to SARS-CoV-2 586288729 Z20.822 Acute bila teral otitis media 946240258 H66.93 [id number] Pedro Little NP [address] [place] [address] 03/25/2023 18:11:06 03/25/2023 18:56:43 Acute bronchitis 59633677 J20.9 Health Concerns Section Related Observation LastModified by Organization Detai ls LastModified Time None Recorded Concern Status LastModified by Organization Details LastModified Time None Recorded Advance Directives Directive None Recorded Payers Insurance Date Sequence Insurance Name Policy Number Policy Law Covered Member ID Law Member ID Guarantor Name 03/25/2023 1 [facility] (MEDICAID HMO) LOYD Abel [id number] Jennifer Abel Notes Date Note Type Note Provider Name and Address Organization Details Recorded Time 3 text/html CongestionReported bypatient.Notes:ear pain bilateral, nasal congestion with post nasal drip x 10 days. denies any fever or fever with chills. no SOB or respiratory distress. Pedro Little NP [address] [place], [address], [place] - [facility] 02/24/2023 20:25:13 3 text/html Sore throatReported bypatient.Source of patient informationInformation obtained from patient; Patient arrived at Urgent Care ambulatory; learning styles: auditory Location:throat Severity:mild Quality:sharp; burning Onset/Timin days Associated Symptoms:no sputum production; no shortness of breath; no wheezing; no vomiting; no nausea;sore throat;hoarseness;coughing; sinus pain/ congestion Context:no foreign travel; non-smoker;sick contact Modifying Factors:exposed to Strep non household Pedro Little NP [address] [place], [address], [place] - [facility] 03/25/2023 18:54:45 OBGyn Episode No OBEpisode recorded.
[2025-06-14 11:15] LABS: MANUAL DIFF FLAG NO
[2025-06-14 11:21] LABS: Hematocrit 41.6 % (37.0-47.0); Hemoglobin 14.0 g/dl (12.0-16.0); Imm Gran Abs Auto 0.02 X10*3/uL (0.00-0.03); Imm Gran Pct Auto 0.2 % (0.0-0.4); Lymphocytes Absolute Auto 2.6 X10*3/uL (1.2-4.9); Mean Corpuscular HGB Conc 33.7 g/dl (31.0-35.0); Mean Corpuscular Hemoglobin 27.9 pg (27.0-33.0); Mean Corpuscular Volume 83.0 fL (80.0-98.0); NRBC Abs Auto 0.000 X10*3/uL (0.0-0.012); NRBC Pct Auto 0.0 /100WBC (0.0-0.2); Platelet Count 369 X10*3/uL (160-400); Red Blood Count 5.01 X10*6/uL (4.20-5.50); White Blood Count 8.8 X10*3/uL (4.8-10.8)
[2025-06-14 11:32] LABS: Appearance Urine Clear; Glucose Urine UA Negative (Negative); PH 6.5 (5.0-9.0); Specific Gravity - Urine 1.020 (1.005-1.025); UMIC TRIGGER UA YES
[2025-06-14 11:48] LABS: Alanine Aminotransferase 11 U/L (0-31); Albumin Level 4.7 g/dL (3.5-5.0); Alkaline Phosphatase 126 U/L (39-117); Anion Gap 14 (12-20); Aspartate Amino Transferase 19 U/L (5-31); Blood Urea Nitrogen 10 mg/dL (9-16); Calcium 9.4 mg/dL (8.4-10.2); Carbon Dioxide 23 mmol/L (22-29); Chloride 107 mmol/L (96-108); Cholesterol 149 mg/dL (<200); Estimated Glomerular Filt Rate > 60; HDL Cholesterol 39 mg/dL (>40); Iron 48 mcg/dL (30-160); Percent Iron Saturation 14 % (15-50); Potassium 3.9 mmol/L (3.3-5.1); Sodium 140 mmol/L (135-145); Total Iron Binding Capacity 344 mcg/dL (228-428); Total Protein 7.6 g/dL (6.5-8.0); Triglycerides 104 mg/dL (<150); Unsaturated Iron Binding 296 ug/dL
== END 2025-06-14 09:19 | disposition home or self-care (01) ==
LOC: HO.HMGCLDS 09:18
PROVIDERS: PCP Internal Medicine; Visit Provider Internal Medicine
DX: Z00.00 Encounter for general adult medical examination without abnormal findings (principal); Q61.3 Polycystic kidney, unspecified
CPT/HCPCS: 36415; 80053; 80061; 81001; 82306; 83540; 84443; 85025

== ENCOUNTER 2025-06-19 08:26 | Outpatient (AMB) | payer OTHER, SELFPAY ==
--- NOTE | 2025-06-19 08:32 | MHC.PC.OV ---
Vital Signs 06/19/25 08:33 Height 5 ft 4 in Weight 152 lb BMI 26.1 BP 96/60 Blood Pressure Location Rt brachial Position Sitting Respiration 18 Pulse 95 Pulse Source Pulse Oximeter Temp 98.4 F Temp Source Oral Pulse Oximetry (%) 99 Oxygen Delivery Method Room Air Intake Visit Reasons: Annual PE Intake Note: Pt is here today for PE. Allergies buspirone (From BuSpar) Adverse Reaction (Mild, Verified 06/19/25 09:13) Anxiety Medication List - Last Reconciled 06/19/25 by Radha Seaman MD dicyclomine 10 mg PO TID lamotrigine 50 mg PO DAILY Tobacco use date assessed: 06/19/25 Dental Screening Dental Screen Date: 06/19/25 Did you have a dental visit in the last 12 months?: Yes Did you have a dental problem in the last 6 months where you did not have access to dental care?: No Was dental information given to patient?: Patient has dentist HPI Annual PE HPI Details Pt presents for PE. PFS Medical History (Updated 06/19/25 @ 15:26 by Radha Seaman MD) Chronic anxiety Polycystic kidney disease Menorrhagia IBS (irritable bowel syndrome) Annual physical exam Bipolar 1 disorder Surgical History [place] teeth extracted Family History Father No problems noted. Mother Hx of colonoscopy Hx of esophagogastroduodenoscopy Sister No problems noted. Brother No problems noted. Brother No problems noted. Maternal Grandmother Lung cancer Social History Household Members: Family Household Members Other:: Dad Housing: Condominium Alcohol intake: never Patient Tobacco Use Status: Never used Tobacco e-Cigarette/Vaping Use: Never Used service: No Current occupational status: unemployed Cognitive needs: No Hearing needs: No Vision needs: Yes Questionnaire Thrive Questionnaire Date Thrive assessed: 06/19/25 I am a: Patient What is your living situation today?: I have a steady place to live Within the past 12 months, did the food you bought not last and you didn't have the money to get more?: Never true Within the past 12 months, did you worry whether your food would run out before you got money to buy more?: Sometimes True Do you have trouble paying for medicines?: No Do you have trouble getting transportation to medical appointments?: Yes Do you have trouble paying your heating and electricity bill?: No Do you have trouble taking care of your child, family member or friend?: No Do you have trouble with day-to-day activities such as bathing, preparing meals, shopping, managing finances, etc.?: No Are you currently unemployed and looking for a job?: No Are you interested in more education?: I choose not to answer this question Please select the resources that you would like help with: None Currently or been in a relationship where the following occur: I choose not to answer THRIVE Score: 2 SILVINO-7 AMB Questionnaire SILVINO-7 Date SILVINO - 7 assessed: 05/01/25 Source: Developed by Drs. Gilson Yeboah, Selma Argueta, Amos Issa and colleagues, with an educational laurie from [employer]. Review of Systems Const All systems reviewed & are unremarkable except as noted in HPI and below Reports no additional complaints Eyes Reports no additional complaints ENT Reports no additional complaints Card Reports no additional complaints Resp Reports no additional complaints GI Reports no additional complaints Reports no additional complaints Musc Reports no additional complaints Physical exam (Primary Care) Vital Signs: Last Vital Signs Temp 98.4 F 06/19/25 08:33 Pulse 95 06/19/25 08:33 Resp 18 06/19/25 08:33 BP 96/60 06/19/25 08:33 Pulse Ox 99 06/19/25 08:33 Oxygen Delivery Method Room Air 06/19/25 08:33 BMI result Body Mass Index 26.1 Tobacco/Smoking Status: Tobacco use Status Tobacco use date assessed 06/19/25 06/19/25 08:38 Patient Tobacco Use Status Never used Tobacco 06/19/25 08:38 e-Cigarette/Vaping Use Never Used 06/19/25 08:38 Thrive Assessment: Date of Thrive Assessment Date Thrive assessed 06/19/25 06/19/25 08:38 Currently or been in a relationship where the following occur: I choose not to answer Const General: no acute distress HENMT Head: Yes normal to inspection Ears: hearing grossly normal bilaterally Face and sinus: Yes normal facial exam Mouth: Normal oral and palatal mucosa present Throat: Yes posterior oropharynx normal Eyes General: appearance normal, both eyes and all related structures Neck Neck: Yes no lymphadenopathy and Yes supple Resp Effort & Inspection: normal respiratory effort Auscultation: clear to auscultation bilaterally Cardio Rhythm: regular rhythm Heart sounds: S1 normal heart sound present and S2 normal heart sound present GI Inspection: Yes normal to inspection Palpation (GI): Soft to palpation Percussion: Yes normal to percussion Auscultation: normal bowel sounds Coding Level of Care Code Est Pt Prev Care 18-39y([id number]) Diagnoses Chronic anxiety F41.9 IBS (irritable bowel syndrome) K58.9 Annual physical exam Z00. Assessment & Plan Assessment & Plan (1) Chronic anxiety: Comment: Established with a counselor and prescriber Code(s): F41.9 - Anxiety disorder, unspecified Category: Medical Plan: Follow-up with counselor and Psychiatry (2) IBS (irritable bowel syndrome): Comment: f/u 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
[2025-06-19 08:33] VITALS: BP 96/60; PULSE 95; RESP 18; TEMP 36.9; O2SAT 99; BMI 26.1
--- OUTSIDE RECORDS SUMMARY | 2025-06-19 08:44 | XMS_ITS | Data Portability ---
Author Organization [facility], [address] Address [address] [place] [address] Care Team Providers Care Faceter Name Role Phone RAMON VERA Primary Care Provider [phone] Assessment No assessment recorded. Plan of Treatment Reminders Order Date Submit Date Provider Last Modified By Organization Details Last Modified Time Details Appointments None recorded. Lab rapid SARS CoV 2 Ag, QL IA, respiratory specimen 2022 023 [facility], [address] [place] [address], [phone], 3 20:25:08 rapid flu (A+B) 2022 023 [facility] _[facility], [address] [place] [address], [address], 3 20:25:08 rapid strep group A, throat 2022 023 [facility] _[facility], [address] [place] [address], [phone], 3 20:25:08 Referral None recorded. Procedures None recorded. Surgeries None recorded. Imaging None recorded. Medication Orders albuterol sulfate HFA 90 mcg/actuati on aerosol inhaler 2022 023 [id number], [address] [place], [address], 3 18:54:04 prednisone 20 mg tablet 2022 023 [id number] [address] [place], [address], 3 18:54:03 benzonatate 200 mg capsule 2022 023 [facility] [address] [place], [address], 3 18:54:01 Allergy Relief (fluticason e) 50 mcg/actuati on nasal spray,suspe nsion 2022 023 [facility] [address] [place], [address], 3 18:54:02 amoxicillin 875 mg-potassiu m clavulanate 125 mg tablet 2022 023 [facility] [address] [place], [address], 3 20:25:12 fexofenadin e-pseudoeph edrine ER 180 mg-240 mg tablet,ext. release 24 hr 2022 023 [facility] [address] [place], [address], 3 20:25:12 prednisone 20 mg tablet 2022 023 [facility] [address] [place], [address], 3 20:25:12 Patient TargetsNo targets recorded. Patient Instructions Encounter Date Encounter Id Patient Instructions Last Modified By Organization Details Last Modified Time 02/24/2023 [id number] An ear infection may start with a [...] taking a prescription pain medicine, take an wjnh-dci-ntfbkxd medicine, such as acetaminophen (Tylenol), ibuprofen (Advil, [...] wear a mask. For travel guidance, see [facility] s Travel webpage. Do not travel. Stay [...] masking (see below). For travel guidance, see [facility] s Travel webpage. [email or web address] Not available 02/24/2023 20:14:56 03/25/2023 [id number] cough: care instructions thad Not available 03/25/2023 [...] =Negat flower Not Available [id number] [place] [address], [place], [address], 02/24/2023 19:57:57 02/25/20 23 02/24/2023 rapid SARS CoV 2 Ag, QL IA, respi rator y speci men Unknown Analyte negati ve Not Available [address] [place] [address], [place], [address], 02/24/2023 19:57:57 02/25/20 23 02/24/2023 rapid flu (A+B) Unknown Analyte Normal = Negati ve Not Available [address] [place] [address], [place], [place], [address], 02/24/2023 19:58:05 02/25/20 23 02/24/2023 rapid flu (A+B) Unknown Analyte Normal = Negati ve Not Available [address] [place] [address], [place], [address], 02/24/2023 19:58:05 02/25/20 23 02/24/2023 rapid flu (A+B) Unknown Analyte negati ve Not Available [address] [place] [address], [place], [address], 02/24/2023 19:58:05 02/25/20 23 02/24/2023 rapid flu (A+B) Unknown Analyte negati ve Not Available [address] [place] [address], [place], [address], 02/24/2023 19:58:05 02/25/20 23 02/24/2023 rapid strep group A, throa t Unknown Analyte Normal = Negati ve Not Available [address] [place] [address], [place], [address], 02/24/2023 19:58:13 02/25/20 23 02/24/2023 rapid strep group A, throa t Unknown Analyte negati ve Not Available [address] [place] [address] [place], [address], 02/24/2023 19:58:13 Result Notes None recorded. Problems [...] height Body mass index (BMI) Body weight Pain severity - 0-10 verbal numeric rating [Score] - Reported Oxygen saturation Oxygen saturation in Arterial blood by Pulse oximetry Heart rate Respiratory rate Body temperature Systolic And Diastolic Provider Name and Address Organization Details Last Updated DateTime 3 162.56 cm 24 kg/m2 99180.9 3 g 6 98 % 98 % 122 /min 18 /min 99.6 [degF] 111/75 mm[Hg] [facility]a [facility] 3 20:01:43 Date Recorded Body height Body mass index (BMI) Body weight Pain severity - 0-10 verbal numeric rating [Score] - Reported Oxygen saturation Oxygen saturation in Arterial blood by Pulse oximetry Heart rate Respiratory rate Body temperature Systolic And Diastolic Provider Name and Address Organization Details Last Updated DateTime 3 162.56 cm 24 kg/m2 85791.9 3 g 0 99 % 99 % 95 /min 20 /min 99.1 [degF] 122/83 mm[Hg] Sari [facility] 3 18:23:34 Social History Question Answer Notes LastModified by [employer] Details LastModified Time Tobacco Smoking Status Never Smoker Alda hatfield [facility] 02/24/2023 19:59:30 Have You Recently Traveled Abroad? No Information not available 02/24/2023 Sex: Unknown Functional Status Question Answer Note LastModified by [employer] Details LastModified Time How many times per [...] SNOMED-CT Code Diagnosis ICD10 Code Diagnosis Note [id number] [facility] [address] [place] [address] 09/04/2022 11:45:18 09/04/2022 14:25:06 [id number] [facility] [address] [place] [address] 06/26/2021 13:16:57 06/26/2021 14:50:52 [id number] Pedro Little NP [address] [address] [place] [address] 02/24/2023 18:59:15 02/24/2023 20:25:42 Exposure to SARS-CoV-2 922031769 Z20.822 Acute bila teral otitis media 545474271 H66.93 [id number] Pedro Little NP [facility] [address] [place] [address] 03/25/2023 18:11:06 03/25/2023 18:56:43 Acute bronchitis 46901224 J20.9 Health Concerns Section Related Observation LastModified by Organization Bill mak LastModified Time None Recorded Concern Status LastModified by Organization Details LastModified Time None Recorded Advance Directives Directive None Recorded Payers Insurance Date Sequence Insurance Name Policy Number Policy Law Covered Member ID Law Member ID Guarantor Name 03/25/2023 1 [facility] NET PLAN (MEDICAID HMO) LOYD Abel [id number] Jennifer Abel Notes Date Note Type Note Provider Name and Address Organization Details Recorded Time 02/24/2023 text/html CongestionReport ed by Patientear pain bilateral, nasal congestion with post nasal drip x 10 days. denies any fever or fever with chills. no SOB or respiratory distress. Pedro Little NP [address] [place], [address], [place] [facility] 02/24/2023 20:25:13 03/25/2023 text/html Sore throatRepor shaista by PatientSore ThroatFor associated symptoms, patient reportssore throat,hoarseness,cough ing, andsinus pain/ congestionbut reportsno sputum production,no shortness of breath,no wheezing,no vomiting, andno nausea. For context, patient reportssick contactbut reportsno foreign travelandnon-smoker. For modifying factors, patient reportsexposed to strep non household. For source of patient information, patient reportsinformation obtained from patient,patient arrived at urgent care ambulatory, andlearning styles: auditory. For location, patient reportsthroat. For severity, patient reportsmild. For quality, patient reportssharpandburning. For onset/timing, patient reports3 days. CoughReported by Patient Pedro Little NP [address] [place], [address], [place] - [facility] 03/25/2023 18:54:45 OBGyn Episode No OBEpisode recorded.
--- OUTSIDE RECORDS SUMMARY | 2025-06-19 08:44 | XMS_ITS | Encounter Summary ---
Author Organization [facility] Address [address] [place] [address] Phone Care Team Providers Care Sap Sd Analyst Name Role Phone Radha Seaman MD Primary Care Provider [phone] Encounter Details Date Type Department Care Team (Late st Contact Info) Description 06/09/2023 Orders Only [facility] [address] [place] [address] Madison Sofia [address] [place] [address] Urinary tract infection, not otherwise [...] Visit [facility] [address] [place] [address] Sharif Junior MD [address] [place] [address] [place] [address] documented as of this encounter Visit Diagnoses Diagnosis Urinary tract infection, not otherwise specified documented in this encounter Care Teams Sap Sd Analyst Relationship Specialty Start Date End Date Radha Seaman MD [address] [place] [address] PCP - General Internal Medicine 11/10/20 documented as of this encounter
== END 2025-06-19 09:30 | disposition home or self-care (01) ==
LOC: HO.HMCC 08:27
PROVIDERS: PCP Internal Medicine; Visit Provider Internal Medicine
DX: F41.9 Anxiety disorder, unspecified (principal); K58.9 Irritable bowel syndrome, unspecified; Z00.00 Encounter for general adult medical examination without abnormal findings

== ENCOUNTER → 2025-06-19 08:26 | Outpatient (BNVA) | payer OTHER, SELFPAY | PROVIDERS: PCP Internal Medicine; Visit Provider Internal Medicine | DX: Z00.00 Encounter for general adult medical examination without abnormal findings (principal); F41.9 Anxiety disorder, unspecified; K58.9 Irritable bowel syndrome, unspecified | CPT/HCPCS: 99395 ==

== ENCOUNTER 2025-07-30 10:51 | Outpatient (AMB) | payer OTHER, SELFPAY ==
[2025-07-30 10:57] VITALS: BP 106/68; PULSE 93; RESP 18; TEMP 37; O2SAT 99; BMI 24.7
--- NOTE | 2025-07-30 10:57 | A.OFFPC_ITS ---
Vital Signs 07/30/25 10:57 Height 5 ft 4 in Weight 144 lb BMI 24.7 BP 106/68 Blood Pressure Location Lt brachial Position Sitting Respiration 18 Pulse 93 Pulse Source Pulse Oximeter Temp 98.6 F Temp Source Oral Pulse Oximetry (%) 99 Oxygen Delivery Method Room Air Intake Visit Reasons: 6 weeks f/up Allergies buspirone (From BuSpar) Adverse Reaction (Mild, Verified 07/30/25 10:57) Anxiety Medication List - Last Reconciled 07/30/25 by Radha Seaman MD dicyclomine 10 mg PO TID lamotrigine 50 mg PO DAILY Tobacco use date assessed: 07/30/25 Dental Screening Dental Screen Date: 06/19/25 HPI 6 weeks f/up HPI Details Patient presents for the follow-up. She reports persistent IBS symptoms alternating constipation and diarrhea and bloating despite taking dicyclomine. Patient would like to see a chainer. She has been monitoring her upper chest for recurrent lumps. She reports feeling occasionally lumps under her skin upper chest usually lasting for one day. She did not noticed any correlation with her menses. Patient denies any breast lumps, pain or nipple discharge. [facility] Medical History (Updated 07/30/25 @ 11:31 by Radha Seaman MD) Chronic anxiety Polycystic kidney disease Menorrhagia IBS (irritable bowel syndrome) Annual physical exam Bipolar 1 disorder Surgical History [place] teeth extracted Family History Father No problems noted. Mother Hx of colonoscopy Hx of esophagogastroduodenoscopy Sister No problems noted. Brother No problems noted. Brother No problems noted. Maternal Grandmother Lung cancer Social History Household Members: Family Household Members Other:: Dad Housing: Condominium Alcohol intake: never Patient Tobacco Use Status: Never used Tobacco e-Cigarette/Vaping Use: Never Used service: No Current occupational status: unemployed Cognitive needs: No Hearing needs: No Vision needs: Yes Questionnaire Thrive Questionnaire Date Thrive assessed: 07/30/25 I am a: Patient What is your living situation today?: I have a steady place to live Within the past 12 months, did the food you bought not last and you didn't have the money to get more?: Never true Within the past 12 months, did you worry whether your food would run out before you got money to buy more?: Sometimes True Do you have trouble paying for medicines?: No Do you have trouble getting transportation to medical appointments?: Yes Do you have trouble paying your heating and electricity bill?: No Do you have trouble taking care of your child, family member or friend?: No Do you have trouble with day-to-day activities such as bathing, preparing meals, shopping, managing finances, etc.?: No Are you currently unemployed and looking for a job?: No Are you interested in more education?: I choose not to answer this question Please select the resources that you would like help with: None Currently or been in a relationship where the following occur: I choose not to answer THRIVE Score: 2 AUDIT C Alcohol Use Questionnaire (AUDIT-C) 3. How often do you have six or more drinks on one occasion?: Never Total Score: 0 SILVINO-7 AMB Questionnaire SILVINO-7 Date SILVINO - 7 assessed: 05/01/25 Source: Developed by Drs. Gilson Yeboah, Selma Argueta, Amos Issa and colleagues, with an educational laurie from [employer]. Review of Systems Const All systems reviewed & are unremarkable except as noted in HPI and below ENT Reports no additional complaints Card Reports no additional complaints Resp Reports no additional complaints GI Reports no additional complaints Reports no additional complaints Physical exam (Primary Care) Vital Signs: Last Vital Signs Temp 98.6 F 07/30/25 10:57 Pulse 93 07/30/25 10:57 Resp 18 07/30/25 10:57 BP 106/68 07/30/25 10:57 Pulse Ox 99 07/30/25 10:57 Oxygen Delivery Method Room Air 07/30/25 10:57 BMI result Body Mass Index 24.7 Tobacco/Smoking Status: Tobacco use Status Tobacco use date assessed 07/30/25 07/30/25 11:02 Patient Tobacco Use Status Never used Tobacco 07/30/25 11:02 e-Cigarette/Vaping Use Never Used 07/30/25 11:02 Thrive Assessment: Date of Thrive Assessment Date Thrive assessed 07/30/25 07/30/25 11:02 Currently or been in a relationship where the following occur: I choose not to answer Const General: no acute distress HENMT Head: Yes normal to inspection Mouth: Normal oral and palatal mucosa present Neck Neck: Yes no lymphadenopathy and Yes supple Chest Breast/axilla inspection: normal inspection of the breasts Breast/axilla palpation: normal palpation of the breasts and normal palpation of the axillae Resp Effort & Inspection: normal respiratory effort Auscultation: clear to auscultation bilaterally Cardio Rhythm: regular rhythm Heart sounds: S1 normal heart sound present and S2 normal heart sound present Coding Level of Care Code Est Pt Level 3 (85985) Diagnoses IBS (irritable bowel syndrome) K58.9 Skin lumps R22.9 Assessment & Plan Assessment & Plan (1) IBS (irritable bowel syndrome): Comment: negative stool studies and celiac disease workup, Code(s): K58.9 - Irritable bowel syndrome, unspecified Category: Medical Plan: Referred to GI (2) Skin lumps: Code(s): R22.9 - Localized swelling, mass and lump, unspecified Category: Medical Plan: There are no palpable significant abnormalities in upper chest. Patient was advised to self monitor and return for any persistent upper chest lumps to get evaluated Orders: Referrals Gastroenterology Referral K58.9 - Irritable bowel syndrome, unspecified
--- OUTSIDE RECORDS SUMMARY | 2025-07-30 12:51 | XMS_ITS | Encounter Summary ---
Author Organization [facility] Address PO [facility] [place] [address] Phone Care Team Providers Care Farm Truck Driver Name Role Phone Radha Seaman MD Primary Care Provider [phone] Encounter Details Date Type Department Care Team (Late Contact Info) Description 09/01/2023 Orders Only [facility] [address] [place] [address] Sharif Junior MD [address] [place] [address] [place] [address] Urinary tract infection, not otherwise specified Social [...] Encounters Date Type Department Care Team (Late Contact Info) Description 12/17/2025 2:15 PM EST Office Visit [facility] [address] [place] [address] Sharif Junior MD [address] [place] [address] [place] [address] documented as of this encounter Visit Diagnoses Diagnosis Urinary tract infection, not otherwise specified documented in this encounter Care Teams Farm Truck Driver Relationship Specialty Start Date End Date Radha Seaman MD [address] [place] [address] PCP - General Internal Medicine 11/10/20 documented as of this encounter
--- OUTSIDE RECORDS SUMMARY | 2025-07-30 12:51 | XMS_ITS | Encounter Summary ---
Author Organization [facility] Address PO [facility] [place] [address] Phone Care Team Providers Care Stations Superintendent Name Role Phone Radha Seaman MD Primary Care Provider [phone] Encounter Details Date Type Department Care Team (Late Contact Info) Description 08/04/2023 Orders Only [facility] [address] [place] [address] Sharif Junior MD [address] [place] [address] [place] [address] Urinary tract infection, not otherwise [...] Visit [facility] [address] [place] [address] Sharif Junior MD [address] [place] [address] [place] [address] documented as of this encounter Visit Diagnoses Diagnosis Urinary tract infection, not otherwise specified documented in this encounter Care Teams Stations Superintendent Relationship Specialty Start Date End Date Radha Seaman MD [address] [place] [address] PCP - General Internal Medicine 11/10/20 documented as of this encounter
--- OUTSIDE RECORDS SUMMARY | 2025-07-30 12:51 | XMS_ITS | Encounter Summary ---
Author Organization [facility] Address [address] [place] [address] Phone Care Team Providers Care Dish Room Worker Name Role Phone Radha Seaman MD Primary Care Provider [phone] Encounter Details Date Type Department Care Team (Late st Contact Info) Description 06/09/2023 Orders Only [facility] [address] [place] [address] Madison Sofia [address] [place] [address] Urinary tract infection, not otherwise [...] Visit [facility] [address] [place] [address] Sharif Junior MD [address] [place] [address] [place] [address] documented as of this encounter Visit Diagnoses Diagnosis Urinary tract infection, not otherwise specified documented in this encounter Care Teams Dish Room Worker Relationship Specialty Start Date End Date Radha Seaman MD [address] [place] [address] PCP - General Internal Medicine 11/10/20 documented as of this encounter
--- OUTSIDE RECORDS SUMMARY | 2025-07-30 12:51 | XMS_ITS | Encounter Summary ---
Author Organization [facility] Address [address] [place] [address] Phone Care Team Providers Care Air Conditioning Insulation Installer Name Role Phone Radha Seaman MD Primary Care Provider [phone] Encounter Details Date Type Department Care Team (Late st Contact Info) Description 09/01/2023 Orders Only [facility] [address] [place] [address] Madison Sofia [address] [place] [address] Urinary tract infection, not otherwise [...] Visit [facility] [address] [place] [address] Sharif Junior MD [address] [place] [address] [place] [address] documented as of this encounter Visit Diagnoses Diagnosis Urinary tract infection, not otherwise specified documented in this encounter Care Teams Air Conditioning Insulation Installer Relationship Specialty Start Date End Date Radha Seaman MD [address] [place] [address] PCP - General Internal Medicine 11/10/20 documented as of this encounter
--- OUTSIDE RECORDS SUMMARY | 2025-07-30 12:51 | XMS_ITS | Encounter Summary ---
Author Organization [facility] Address [address] [place] [address] Phone Care Team Providers Care Bunk House Worker Name Role Phone Radha Seaman MD Primary Care Provider [phone] Encounter Details Date Type Department Care Team (Late st Contact Info) Description 07/07/2023 Orders Only [facility] [address] [place] [address] Madison Sofia [address] [place] [address] Urinary tract infection, not otherwise [...] Visit [facility] [address] [place] [address] Sharif Junior MD [address] [place] [address] [place] [address] documented as of this encounter Visit Diagnoses Diagnosis Urinary tract infection, not otherwise specified documented in this encounter Care Teams Bunk House Worker Relationship Specialty Start Date End Date Radha Seaman MD [address] [place] [address] PCP - General Internal Medicine 11/10/20 documented as of this encounter
--- OUTSIDE RECORDS SUMMARY | 2025-07-30 12:51 | XMS_ITS | Encounter Summary ---
Author Organization [facility] Address [address] [facility] [place] [address] Phone Care Team Providers Care Conveyor Feeder Offbearer Name Role Phone Radha Seaman MD Primary Care Provider [phone] Encounter Details Date Type Department Care Team (Late Contact Info) Description 07/07/2023 Orders Only [facility] [address] [place] [address] Sharif Junior MD [address] [place] [address] [place] [address] Urinary tract infection, not otherwise [...] Visit [facility] [address] [place] [address] Sharif Junior MD [address] [place] [address] [place] [address] documented as of this encounter Visit Diagnoses Diagnosis Urinary tract infection, not otherwise specified documented in this encounter Care Teams Conveyor Feeder Offbearer Relationship Specialty Start Date End Date Radha Seaman MD [address] [place] [address] PCP - General Internal Medicine 11/10/20 documented as of this encounter
--- OUTSIDE RECORDS SUMMARY | 2025-07-30 12:51 | XMS_ITS | Encounter Summary ---
Author Organization [facility] Address [address] [facility] [address] Phone Care Team Providers Care Structural Mill Supervisor Name Role Phone Radha Seaman MD Primary Care Provider [phone] Encounter Details Date Type Department Care Team (Late Contact Info) Description 06/09/2023 Orders Only [facility] [address] [place] [address] Sharif Junior MD [address] [place] [address] [place] [address] Urinary tract infection, not otherwise [...] [facility] [address] [place] [address] Sharif Junior MD [address] [place] [address] [place] [address] documented as of this encounter Visit Diagnoses Diagnosis Urinary tract infection, not otherwise specified documented in this encounter Care Teams Structural Mill Supervisor Relationship Specialty Start Date End Date Radha Seaman MD [address] [place] [address] PCP - General Internal Medicine 11/10/20 documented as of this encounter
--- OUTSIDE RECORDS SUMMARY | 2025-07-30 12:51 | XMS_ITS | Encounter Summary ---
Author Organization [facility] Address [address] [place] [address] [place] [address] Phone Care Team Providers Care Scale Technician Name Role Phone Radha Seaman MD Primary Care Provider [phone] Encounter Details Date Type Department Care Team (Late st Contact Info) Description 02/28/2022 Documentation Only [facility] [address] [place] [address] Sharif Junior MD [address] [place] [address] [place] [address] Social History Tobacco Use Types Packs/Day Years [...] Visit [facility] [address] [place] [address] Sharif Junior MD [address] [place] [address] [place] [address] [place] [address] documented as of this encounter Visit Diagnoses Not on filedocumented in this encounter Care Teams Scale Technician Relationship Specialty Start Date End Date Radha Seaman MD [address] [place] [address] PCP - General Internal Medicine 11/10/20 documented as of this encounter
--- OUTSIDE RECORDS SUMMARY | 2025-07-30 12:51 | XMS_ITS | Encounter Summary ---
Author Organization [facility] Address [address] [place] [address] [place] [address] Phone Care Team Providers Care Mellowing Machine Operator Name Role Phone Radha Seaman MD Primary Care Provider [phone] Encounter Details Date Type Department Care Team (Late st Contact Info) Description 01/19/2022 Documentation Only [facility] [address] [place] [address] Sharif Junior MD [address] [place] [address] [place] [address] Social History Tobacco Use Types [...] Visit [facility] [address] [place] [address] Sharif Junior MD [address] [place] [address] [place] [address] documented as of this encounter Visit Diagnoses Not on filedocumented in this encounter Care Teams Mellowing Machine Operator Relationship Specialty Start Date End Date Radha Seaman MD [address] [place] [address] PCP - General Internal Medicine 11/10/20 documented as of this encounter
--- OUTSIDE RECORDS SUMMARY | 2025-07-30 12:51 | XMS_ITS | Encounter Summary ---
Author Organization [facility] Address [address] [place] [phone] Phone Care Team Providers Care Sales Officer Name Role Phone Radha Seaman MD Primary Care Provider [phone] Encounter Details Date Type Department Care Team (Late st Contact Info) Description 08/04/2023 Orders Only [facility] [address] [place] [address] [place] [address] [place] [address] Urinary tract infection, not otherwise [...] Visit [facility] [address] [place] [address] Sharif Junior MD [address] [place] [address] [place] [address] documented as of this encounter Visit Diagnoses Diagnosis Urinary tract infection, not otherwise specified documented in this encounter Care Teams Sales Officer Relationship Specialty Start Date End Date Radha Seaman MD [address] [place] [address] PCP - General Internal Medicine 11/10/20 documented as of this encounter
--- OUTSIDE RECORDS SUMMARY | 2025-07-30 12:52 | XMS_ITS | Encounter Summary ---
Author Organization [facility] Address PO [facility] [place] [address] Phone Care Team Providers Care Crozer Operator Name Role Phone Radha Seaman MD Primary Care Provider [phone] Encounter Details Date Type Department Care Team (Late Contact Info) Description 10/27/2023 Orders Only [facility] [address] [place] [address] Sharif Junior MD [address] [place] [address] [place] [address] Urinary tract infection, not otherwise [...] Visit [facility] [address] [place] [address] Sharif Junior MD [address] [place] [address] [place] [address] documented as of this encounter Visit Diagnoses Diagnosis Urinary tract infection, not otherwise specified documented in this encounter Care Teams Crozer Operator Relationship Specialty Start Date End Date Radha Seaman MD [address] [place] [address] PCP - General Internal Medicine 11/10/20 documented as of this encounter
--- OUTSIDE RECORDS SUMMARY | 2025-07-30 12:52 | XMS_ITS | Encounter Summary ---
Author Organization [facility] Address [address] [place] [phone] Phone Care Team Providers Care Grain Drier Operator Name Role Phone Radha Seaman MD Primary Care Provider [phone] Encounter Details Date Type Department Care Team (Late st Contact Info) Description 02/16/2024 Orders Only [facility] [address] [place] [address] [place] Sofia [address] [place] [address] Urinary tract infection, not otherwise [...] Visit [facility] [address] [place] [address] Sharif Junior MD [address] [place] [address] [place] [address] documented as of this encounter Visit Diagnoses Diagnosis Urinary tract infection, not otherwise specified documented in this encounter Care Teams Grain Drier Operator Relationship Specialty Start Date End Date Radha Seaman MD [address] [place] [address] PCP - General Internal Medicine 11/10/20 documented as of this encounter
--- OUTSIDE RECORDS SUMMARY | 2025-07-30 12:52 | XMS_ITS | Encounter Summary ---
Author Organization [facility] Address PO [facility] [place] [address] Phone Care Team Providers Care Crown Ironer Operator Name Role Phone Radha Seaman MD Primary Care Provider [phone] Encounter Details Date Type Department Care Team (Late Contact Info) Description 05/12/2023 Orders Only [facility] [address] [place] [address] Sharif Junior MD [address] [place] [address] [place] [address] Urinary tract infection, not otherwise [...] Visit [facility] [address] [place] [address] Sharif Junior MD [address] [place] [address] [place] [address] documented as of this encounter Visit Diagnoses Diagnosis Urinary tract infection, not otherwise specified documented in this encounter Care Teams Crown Ironer Operator Relationship Specialty Start Date End Date Radha Seaman MD [address] [place] [address] PCP - General Internal Medicine 11/10/20 documented as of this encounter
--- OUTSIDE RECORDS SUMMARY | 2025-07-30 12:52 | XMS_ITS | Encounter Summary ---
Author Organization [facility] Address [address] [place] [address] Phone Care Team Providers Care Industrial Maintenance Repairer Helper Name Role Phone Radha Seaman MD Primary Care Provider [phone] Encounter Details Date Type Department Care Team (Late st Contact Info) Description 05/12/2023 Orders Only [facility] [address] [place] [address] [place] Sofia [address] [place] [address] Urinary tract infection, not otherwise [...] Visit [facility] [address] [place] [address] Sharif Junior MD [address] [place] [address] [place] [address] documented as of this encounter Visit Diagnoses Diagnosis Urinary tract infection, not otherwise specified documented in this encounter Care Teams Industrial Maintenance Repairer Helper Relationship Specialty Start Date End Date Radha Seaman MD [address] [place] [address] PCP - General Internal Medicine 11/10/20 documented as of this encounter
--- OUTSIDE RECORDS SUMMARY | 2025-07-30 12:52 | XMS_ITS | Encounter Summary ---
Author Organization [facility] Address [address] [place] [phone] Phone Care Team Providers Care Program Director/Morning Show Host Name Role Phone Radha Seaman MD Primary Care Provider [phone] Encounter Details Date Type Department Care Team (Late st Contact Info) Description 09/29/2023 Orders Only [facility] [address] [place] [address] [place] Sofia [address] [place] [address] Urinary tract infection, not otherwise [...] Visit [facility] [address] [place] [address] Sharif Junior MD [address] [place] [address] [place] [address] documented as of this encounter Visit Diagnoses Diagnosis Urinary tract infection, not otherwise specified documented in this encounter Care Teams Program Director/Morning Show Host Relationship Specialty Start Date End Date Radha Seaman MD [address] [place] [address] PCP - General Internal Medicine 11/10/20 documented as of this encounter
--- OUTSIDE RECORDS SUMMARY | 2025-07-30 12:52 | XMS_ITS | Encounter Summary ---
Author Organization [facility] Address [address] [place] [phone] Phone Care Team Providers Care Trimmer Climber Name Role Phone Radha Seaman MD Primary Care Provider [phone] Encounter Details Date Type Department Care Team (Late st Contact Info) Description 10/27/2023 Orders Only [facility] [address] [place] [address] [place] Sofia [address] [place] [address] Urinary tract infection, not otherwise specified Social [...] Visit [facility] [address] [place] [address] Sharif Junior MD [address] [place] [address] [place] [address] documented as of this encounter Procedures Procedure Name Priority Date/Time Associated Diagnosis Comments URINALYSIS WITH MICROSCOPIC Routine 11/22/2023 10:36 AM EST Urinary tract infection, not otherwise specified URINE CULTURE Routine 11/22/2023 10:36 AM EST Urinary tract infection, not otherwise specified documented in this encounter Results * (ABNORMAL) Urinalysis with microscopic (11/22/2023 10:36 AM EST) Appearance COLORLESS [facility] Comment:CLEAR Specific [place] 1.006 (1.002-1. 030) [facility] pH Urine 7.0 (5.0-8.0) [facility] Albumin, Urine NEGATIVE (NEG) [facility] Glucose, Ur NEGATIVE (NEG) [facility] Ketones, Urine NEGATIVE (NEG) [facility] Bilirubin Urine NEGATIVE (NEG) [facility] Hemoglobin Presence in Urine NEGATIVE (NEG) [facility] Nitrite, Urine NEGATIVE (NEG) [facility] Leukocyte Esterase Urine 1+(A) (NEG) [facility] Urobilinogen Urine NORMAL (NORM) MG/DL [facility] WBC, Urine 1 (0-5) /HPF [facility] RBC, Urine 1 (0-3) /HPF [facility] Squamous Epithelial, Urine 3 (0-8) /HPF [facility] Comment: Testing performed or reported by [facility], a Service of [facility], [address] [place] [address] Parish Godwin MD, Supervisor/Port Director [facility]# [id number] Urine specimen (specimen) Urine specimen obtained by clean catch procedure / Unknown 11/22/2023 10:36 AM EST 11/22/2023 10:39 AM EST Sharif Junior MD LAB URINE ORDERABLES Final Result [facility] * Urine culture (11/22/2023 10:36 AM EST) Specimen Description See Comment See Comment See Comment See Comment [facility] Comment: URINE CLEAN CATCH/MIDSTREAM NONE <10,000 COL/ML FINAL 11/23/2023 Testing performed or reported by [facility], a Service of [facility], [facility] [place] [address] Parish Godwin MD, Supervisor/Port Director [facility]# [id number] Urine specimen (specimen) Urine specimen obtained by clean catch procedure / Unknown 11/22/2023 10:36 AM EST 11/22/2023 10:38 AM EST us Sharif Junior MD LAB URINE ORDERABLES Final Result [facility] documented in this encounter Visit Diagnoses Diagnosis Urinary tract infection, not otherwise specified documented in this encounter Care Teams Trimmer Climber Relationship Specialty Start Date End Date Radha Seaman MD [address] [place] [address] PCP - General Internal Medicine 11/10/20 documented as of this encounter
--- OUTSIDE RECORDS SUMMARY | 2025-07-30 12:52 | XMS_ITS | Encounter Summary ---
Author Organization [facility] Address [address] [place] [phone] Phone Care Team Providers Care Fiscal Services Manager Name Role Phone Radha Seaman MD Primary Care Provider [phone] Encounter Details Date Type Department Care Team (Late st Contact Info) Description 11/24/2023 Orders Only [facility] [address] [place] [address] [place] Sofia [address] [place] [address] Urinary tract infection, not otherwise specified Social [...] Visit [facility] [address] [place] [address] Sharif Junior MD [address] [place] [address] [place] [address] documented as of this encounter Visit Diagnoses Diagnosis Urinary tract infection, not otherwise specified documented in this encounter Care Teams Fiscal Services Manager Relationship Specialty Start Date End Date Radha Seaman MD [address] [place] [address] PCP - General Internal Medicine 11/10/20 documented as of this encounter
--- OUTSIDE RECORDS SUMMARY | 2025-07-30 12:52 | XMS_ITS | Encounter Summary ---
Author Organization [facility] Address [place] [facility] [address] Phone Care Team Providers Care Professor Of Physics Name Role Phone Radha Seaman MD Primary Care Provider [phone] Encounter Details Date Type Department Care Team (Late Contact Info) Description 01/20/2023 Orders Only [facility] [address] [place] [address] Sharif Junior MD [address] [place] [address] [place] [address] Urinary tract infection, not otherwise [...] Visit [facility] [address] [place] [address] Sharif Junior MD [address] [place] [address] [place] [address] documented as of this encounter Visit Diagnoses Diagnosis Urinary tract infection, not otherwise specified documented in this encounter Care Teams Professor Of Physics Relationship Specialty Start Date End Date Radha Seaman MD [address] [place] [address] PCP - General Internal Medicine 11/10/20 documented as of this encounter
--- OUTSIDE RECORDS SUMMARY | 2025-07-30 12:52 | XMS_ITS | Encounter Summary ---
Author Organization [facility] Address PO [facility] [place] [address] Phone Care Team Providers Care Inflated Ball Molder Name Role Phone Radha Seaman MD Primary Care Provider [phone] Encounter Details Date Type Department Care Team (Late Contact Info) Description 03/17/2023 Orders Only [facility] [address] [place] [address] Sharif Junior MD [address] [place] [address] [place] [address] Urinary tract infection, not otherwise [...] Visit [facility] [address] [place] [address] Sharif Junior MD [address] [place] [address] [place] [address] documented as of this encounter Visit Diagnoses Diagnosis Urinary tract infection, not otherwise specified documented in this encounter Care Teams Inflated Ball Molder Relationship Specialty Start Date End Date Radha Seaman MD [address] [place] [address] PCP - General Internal Medicine 11/10/20 documented as of this encounter
--- OUTSIDE RECORDS SUMMARY | 2025-07-30 12:52 | XMS_ITS | Encounter Summary ---
Author Organization [facility] Address PO [facility] [place] [address] Phone Care Team Providers Care Senior Project Architect Name Role Phone Radha Seaman MD Primary Care Provider [phone] Encounter Details Date Type Department Care Team (Late Contact Info) Description 09/29/2023 Orders Only [facility] [address] [place] [address] Sharif Junior MD [address] [place] [address] [place] [address] Urinary tract infection, not otherwise [...] [facility] [address] [place] [address] Sharif Junior MD [address] [place] [address] [place] [address] documented as of this encounter Visit Diagnoses Diagnosis Urinary tract infection, not otherwise specified documented in this encounter Care Teams Senior Project Architect Relationship Specialty Start Date End Date Radha Seaman MD [address] [place] [address] PCP - General Internal Medicine 11/10/20 documented as of this encounter
--- OUTSIDE RECORDS SUMMARY | 2025-07-30 12:52 | XMS_ITS | Encounter Summary ---
Author Organization [facility] Address [address] [place] [phone] Phone Care Team Providers Care Packer Insulation Name Role Phone Radha Seaman MD Primary Care Provider [phone] Encounter Details Date Type Department Care Team (Late st Contact Info) Description 12/22/2023 Orders Only [facility] [address] [place] [address] [place] Sofia [address] [place] [address] Urinary tract infection, not otherwise [...] Visit [facility] [address] [place] [address] Sharif Junior MD [address] [place] [address] [place] [address] documented as of this encounter Visit Diagnoses Diagnosis Urinary tract infection, not otherwise specified documented in this encounter Care Teams Packer Insulation Relationship Specialty Start Date End Date Radha Seaman MD [address] [place] [address] PCP - General Internal Medicine 11/10/20 documented as of this encounter
--- OUTSIDE RECORDS SUMMARY | 2025-07-30 12:52 | XMS_ITS | Encounter Summary ---
Author Organization [facility] Address PO [facility] [place] [address] Phone Care Team Providers Care Tax Intern Name Role Phone Radha Seaman MD Primary Care Provider [phone] Encounter Details Date Type Department Care Team (Late Contact Info) Description 04/14/2023 Orders Only [facility] [address] [place] [address] Sharif Junior MD [address] [place] [address] [place] [address] Urinary tract infection, not otherwise [...] Visit [facility] [address] [place] [address] Sharif Junior MD [address] [place] [address] [place] [address] documented as of this encounter Visit Diagnoses Diagnosis Urinary tract infection, not otherwise specified documented in this encounter Care Teams Tax Intern Relationship Specialty Start Date End Date Radha Seaman MD [address] [place] [address] PCP - General Internal Medicine 11/10/20 documented as of this encounter
--- OUTSIDE RECORDS SUMMARY | 2025-07-30 12:52 | XMS_ITS | Encounter Summary ---
Author Organization [facility] Address [address] [place] [phone] Phone Care Team Providers Care Gyroscopic Instrument Mechanic Name Role Phone Radha Seaman MD Primary Care Provider [phone] Encounter Details Date Type Department Care Team (Late st Contact Info) Description 01/19/2024 Orders Only [facility] [address] [place] [address] Madison Sofia [address] [place] [address] Urinary tract infection, not otherwise [...] Visit [facility] [address] [place] [address] Sharif Junior MD [address] [place] [address] [place] [address] documented as of this encounter Visit Diagnoses Diagnosis Urinary tract infection, not otherwise specified documented in this encounter Care Teams Gyroscopic Instrument Mechanic Relationship Specialty Start Date End Date Radha Seaman MD [address] [place] [address] PCP - General Internal Medicine 11/10/20 documented as of this encounter
--- OUTSIDE RECORDS SUMMARY | 2025-07-30 12:52 | XMS_ITS | Encounter Summary ---
Author Organization [facility] Address PO [facility] [place] [address] Phone Care Team Providers Care Digital Forensics Investigator Name Role Phone Radha Seaman MD Primary Care Provider [phone] Encounter Details Date Type Department Care Team (Late Contact Info) Description 02/17/2023 Orders Only [facility] Of [address] [place] [address] Sharif Junior MD [address] [place] [address] [place] [address] Urinary tract infection, not otherwise [...] [facility] [address] [place] [address] Sharif Junior MD [address] [place] [address] [place] [address] documented as of this encounter Visit Diagnoses Diagnosis Urinary tract infection, not otherwise specified documented in this encounter Care Teams Digital Forensics Investigator Relationship Specialty Start Date End Date Radha Seaman MD [address] [place] [address] PCP - General Internal Medicine 11/10/20 documented as of this encounter
--- OUTSIDE RECORDS SUMMARY | 2025-07-30 12:52 | XMS_ITS | Clinical Summary ---
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 Social History Tobacco Use Types Packs/Day Years [...] on file Sexual Orientation Not on file Last Filed Vital Signs Vital Sign Reading Time Taken Comments Blood Pressure 104/68 12/11/2024 2:25 PM EST Pulse - - Temperature - - Respiratory Rate - - Oxygen Saturation - - Inhaled Oxygen Concentration - - Weight - - Height - - Body Mass Index - - Plan of Treatment Upcoming Encounters Date Type Department Care Team (Late st Contact Info) Description 12/17/2025 2:15 PM EST Office Visit [facility], [address] [place] [address] Sharif Junior MD [address] [place] [address] Health Maintenance Due Date Last Done Comments Hepatitis B Vaccine (1 of 3 - 19+ 3-dose series) 2020 02/17/2023 Pneumococcal Vaccine: Peds ( 0 to 5 Years) and At-Risk Patients (6 to 49 Years) (1 of 2 - PCV) 2020 Influenza Vaccine (#1) 2025 12/02/2019, [address] [place] [address] [place] [address] Care Teams Rehab Physician Relationship Specialty Start Date End Date Radha Seaman MD [address] [place] [address] PCP - General Internal Medicine 11/10/20
== END 2025-07-30 11:33 | disposition home or self-care (01) ==
LOC: HO.HMCC 10:51
PROVIDERS: PCP Internal Medicine; Visit Provider Internal Medicine
DX: K58.9 Irritable bowel syndrome, unspecified (principal); R22.9 Localized swelling, mass and lump, unspecified

== ENCOUNTER → 2025-07-30 10:51 | Outpatient (BNVA) | payer OTHER, SELFPAY | PROVIDERS: PCP Internal Medicine; Visit Provider Internal Medicine | DX: K58.1 Irritable bowel syndrome with constipation (principal); K58.0 Irritable bowel syndrome with diarrhea; Z79.899 Other long term (current) drug therapy | CPT/HCPCS: 99212 ==